=== PATIENT | female | born 1935 | race Caucasian/White ===

== ENCOUNTER 2020-01-13 08:45 | Emergency (ER) | payer MEDICARE, MEDICAID ==
--- NOTE | 2020-01-13 09:45 | EDM.PDOC ---
ED HPI GENERAL MEDICAL PROBLEM - General Chief Complaint: Lower Extremity Injury/Pain Stated Complaint: ER Time Seen by Provider: 01/13/20 09:25 Source of Information: Reports: Patient, Retirement Records History Limitations: Reports: Altered Mental Status - History of Present Illness INITIAL COMMENTS - FREE TEXT/NARRATIVE: Shaunna is a pleasant 84 yo female who is brought into the ED via [facility] with concerns of hip fracture. Nursing notes states patient fell at 0745 this morning and had external rotation of the left leg. Upon trying to ambulate patient complained of leg pain. Patient resides at [facility]. Has known history of dementia with frequent falls. Is on chronic anticoagulation, Coumadin, for atrial fibrillation. Shaunna is resting comfortably in the ED bed and upon my arrival states her pain is in the left knee. Denies any hip pain at this time. Unknown if any head involvement with recent fall. Patient sent for x-ray of the hip and CT head upon arrival. Left Hip Pain Score (Numeric/FACES): 0 - Related Data Allergies Allergy/AdvReac Type Severity Reaction Status Date / Time codeine Allergy Cannot Verified 01/13/20 09:01 Remember Past Medical History HEENT History: Reports: None Cardiovascular History: Reports: Afib, Cardiomyopathy, Hypertension, Pacemaker Respiratory History: Reports: None Gastrointestinal History: Reports: Chronic Constipation, GERD Genitourinary History: Reports: UTI, Recurrent, Other (See Below) (overactive bladder) Musculoskeletal History: Reports: Back Pain, Chronic, Osteoarthritis, Osteoporosis Neurological History: Reports: Other (See Below) (Dementia) Psychiatric History: Reports: Depression, Other (See Below) (insomnia) Endocrine/Metabolic History: Reports: Osteoporosis Hematologic History: Reports: Anemia - Past Surgical History Head Surgeries/Procedures: Reports: None Cardiovascular Surgical History: Reports: Pacer Musculoskeletal Surgical History: Reports: Knee Replacement Social & Family History - Tobacco Use Smoking Status *Q: Never Smoker - Alcohol Use Alcohol Use History: No - Living Situation & Occupation Living situation: Reports: Assisted Living Review of Systems - Review of Systems Review Of Systems: See Below Eyes: Reports: No Symptoms Ears: Reports: No Symptoms Nose: Reports: No Symptoms Mouth/Throat: Reports: No Symptoms Respiratory: Reports: No Symptoms Cardiovascular: Reports: No Symptoms GI/Abdominal: Reports: No Symptoms Genitourinary: Reports: No Symptoms Musculoskeletal: Reports: Leg Pain (left knee) Skin: Reports: Wound (skin abrasion right elbow) Neurological: Reports: No Symptoms Psychiatric: Reports: Confusion (chronic) ED EXAM, GENERAL - Physical Exam Exam: See Below Exam Limited By: Altered Mental Status (dementia) General Appearance: Alert, No Apparent Distress Eye Exam: Bilateral Eye: EOMI, Normal Inspection Ears: Normal External Exam, Normal Canal, Hearing Grossly Normal, Normal TMs Nose: Normal Inspection, Normal Mucosa, No Blood Throat/Mouth: Normal Inspection, Normal Lips, Normal Gums, Normal Oropharynx, Normal Voice, No Airway Compromise Head: Atraumatic, Normocephalic. No: Facial Swelling, Facial Tenderness Neck: Normal Inspection, Supple. No: Tender Lateral, Tender Midline Respiratory/Chest: No Respiratory Distress, Lungs Clear, Normal Breath Sounds, No Accessory Muscle Use Cardiovascular: Regular Rate, Rhythm, No Edema, Systolic Murmur GI/Abdominal: Normal Bowel Sounds, Soft, No Organomegaly, No Distention, No A bnormal Bruit, No Mass, Pelvis Stable Back Exam: Normal Inspection. No: Paraspinal Tenderness, Vertebral Tenderness Extremities: Leg Pain (Pain with palpation to left knee. No discomfort with internal and external rotation of the hip. No foreshortening noted of the left leg. Mild swelling noted to left knee s/p knee replacement. ) Neurological: Alert, CN II-XII Intact, No Motor/Sensory Deficits, Memory Loss Recent Events. No: Oriented (verbalizes at hospital, unsure of date and current city. States she is from [place]. ) Psychiatric: Normal Affect, Normal Mood Skin Exam: Wound/Incision (1.5cm X .5cm superficial abrasion to right posterior elbow. ) Course - Vital Signs Last Recorded V/S: Last Vital Signs Temp 96.6 F L 01/13/20 09:15 Pulse 68 01/13/20 09:15 Resp 20 01/13/20 09:15 BP 128/74 01/13/20 09:15 Pulse Ox - Orders/Labs/Meds Orders: Active Orders 24 hr Category Date Time Status Head wo Cont [CT] Routine Exams 01/13/20 Taken Hip Min 2V or 3V w Pelvis Lt [CR] Routine Exams 01/13/20 Taken Knee 3V Lt [CR] Stat Exams 01/13/20 09:46 Taken Labs: Laboratory Tests 01/13/20 01/13/2020 Range/Units 09:26 09:26 09:26 WBC 8.1 (5.0-10.0) 10^3/uL RBC 4.12 (4.00-5.50) 10^6/uL Hgb 13.2 (12.0-16.0) g/dL Hct 40.9 (37.0-47.0) % MCV 99.3 H (82.0-94.0) fL MCH 32.0 (27.0-32.0) pg MCHC 32.3 L (33.0-38.0) g/dL RDW Coeff of Bernie 13.8 (11.0-15.0) % Plt Count 283 (150-400) 10^3/uL Neut % (Auto) 77.3 (35-85) % Lymph % (Auto) 14.1 (10-55) % [place] % (Auto) 6.6 (0-16) % Eos % (Auto) 1.4 (0-5) % Baso % (Auto) 0.6 (0-3) % Neut # (Auto) 6.25 (1.80-7.00) 10^3/uL Lymph # (Auto) 1.14 (1.00-4.80) 10^3/uL [place] # (Auto) 0.53 (0.00-0.80) 10^3/uL Eos # (Auto) 0.11 (0.00-0.45) 10^3/uL Baso # (Auto) 0.05 10^3/uL PT 18.1 H (9.7-12.3) SEC INR 1.80 H (0.92-1.18) APTT 36.1 H (23.2-32.3) SEC Sodium 142 (136-145) mEq/L Potassium 4.3 (3.5-5.0) mEq/L Chloride 105 (98-106) mEq/L Carbon Dioxide 30 (21-32) mmol/L BUN 26 H (7-18) mg/dL Creatinine 1.0 (0.6-1.0) mg/dL Est Cr Clr Drug Dosing 47.92 mL/min Estimated GFR (MDRD) 53 L (>=60) mL/min Glucose 95 (75-99) mg/dL Calcium 9.1 (8.4-10.1) mg/dL Total Bilirubin 0.4 (0.0-1.0) mg/dL AST 19 (15-37) U/L ALT 15 (12-78) U/L Alkaline Phosphatase 63 (46-116) U/L Creatine Kinase 61 (21-215) U/L Troponin I < 0.017 (0.00-0.06) ng/mL Total Protein 6.8 (6.4-8.2) g/dL Albumin 3.0 L (3.4-5.0) g/dL - Radiology Interpretation Free Text/Narrative:: CT Head appears negative. No acute intracranial hemorrhage/bleed. X-ray of the left hip is negative for fracture. X-ray of the left knee shows proper placement of prosthesis. No fractures seen. 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 CT Results Date: 01/13/20 Departure - Departure Time of Disposition: 12:05 Disposition: DC/Tfer to [facility] Clinical Impression: Lateral dislocation of patella Qualifiers: Encounter type: sequela Laterality: right Qualified Code(s): S83.014S - Lateral dislocation of right patella, sequela Abrasion of elbow, right Qualifiers: Encounter type: initial encounter Qualified Code(s): S50.311A - Abrasion of right elbow, initial encounter - Discharge Information Instructions: Patellar Dislocation Forms: ED Department Discharge Additional Instructions: 1) Wear knee brace daily, only to be removed at bedtime 2) May continue with home medications 3) Currently denies any new onset of pain. If pain worsens or any concerns at all, recommend reevaluation. Sepsis Event Note (ED) - Evaluation Sepsis Screening Result: No Definite Risk - Focused Exam Vital Signs: Vital Signs Temp Pulse Resp BP 01/13/20 09:15 96.6 F L 68 20 128/74 - Problem List & Annotations (1) Abrasion of elbow, right SNOMED Code(s): 077170080 Code(s): S50.311A - ABRASION OF RIGHT ELBOW, INITIAL ENCOUNTER Status: Acute Current Visit: Yes Qualifiers: Encounter type: initial encounter Qualified Code(s): S50.311A - Abrasion of right elbow, initial encounter (2) Lateral dislocation of patella SNOMED Code(s): 966003660 Code(s): S83.016A - LATERAL DISLOCATION OF UNSPECIFIED PATELLA, INIT ENCNTR Status: Acute Current Visit: Yes Qualifiers: Encounter type: sequela Laterality: right Qualified Code(s): S83.014S - Lateral dislocation of right patella, sequela - My Orders Last 24 Hours: My Active Orders 01/13/20 Head wo Cont [CT] Routine Hip Min 2V or 3V w Pelvis Lt [CR] Routine 01/13/20 09:46 Knee 3V Lt [CR] Stat - Assessment/Plan Last 24 Hours: My Active Orders 01/13/20 Head wo Cont [CT] Routine Hip Min 2V or 3V w Pelvis Lt [CR] Routine 01/13/20 09:46 Knee 3V Lt [CR] Stat Plan: Will discharge back to shelter. Advise wearing knee brace daily and may remove at bedtime. X-rays did show dislocated patella, which is likely chronic. [place] with [place]. Carroll, orthopedic surgeon, [place] [facility] [place]. Pelvis is stable with no fractures noted. No hip fractures. Dr. Carroll did recommend wearing brace which pt is to be wearing daily. We did get patient up and ambulating with walker without any complaints of discomfort. Contacted shelter and she has a brace she is suppose to wear. CT head was negative. Patient had GCS of 15 upon arrival and during entire time in ED.
[2020-01-13 09:47] LABS: PTT,PARTIAL THROMBOPLSTIN TIME 36.1 SEC (23.2-32.3)
[2020-01-13 09:50] LABS: CHLORIDE,CL 105 mEq/L (98-106); SODIUM,NA 142 mEq/L (136-145)
== END 2020-01-13 12:35 | disposition home or self-care (01) ==
LOC: CC.ED 08:45
DX: S83.014S Lateral dislocation of right patella, sequela (principal); S50.311A Abrasion of right elbow, initial encounter; I48.91 Unspecified atrial fibrillation; I10 Essential (primary) hypertension; F03.90 Unspecified dementia, unspecified severity, without behavioral disturbance, psychotic disturbance, mood disturbance, and anxiety; Z79.01 Long term (current) use of anticoagulants; Z95.0 Presence of cardiac pacemaker; Z88.5 Allergy status to narcotic agent; W19.XXXA Unspecified fall, initial encounter
CPT/HCPCS: 36415; 70450; 73562-LT; 80053; 82550; 84484; 85025; 85610; 85730; 99284-25